=== PATIENT | female | born 1930 ===

== ENCOUNTER 2022-06-10 09:25 | Outpatient (CLI) | payer OTHER ==
[~2022-06-10 09:25] MED LIST: AMIODARONE HCL200 MG; CARVEDILOL3.125 MG; Cordarone PO; Coreg PO; FUROSEMIDE40 MG PO; INTEGRA F CAPS1 EACH PO; LEVOXYL137 MCG PO; LOSARTAN POTASS50 MG; PEPCID20 MG PO; SYNTHROID137 MCG; VASOTEC2.5 MG; XARELTO10 MG PO
== END 2022-06-10 09:32 | disposition home or self-care (01) ==
LOC: RAD 09:25
PROVIDERS: ATTEND Orthopaedic Surgery
DX: M25.562 Pain in left knee (principal); M79.652 Pain in left thigh

== ENCOUNTER 2022-07-26 08:14 | Outpatient (CLI) | payer OTHER | END 2022-07-26 08:26 | disposition home or self-care (01) | LOC: LAB 08:14 | PROVIDERS: ATTEND Orthopaedic Surgery | DX: E55.9 Vitamin D deficiency, unspecified (principal); M85.9 Disorder of bone density and structure, unspecified; E56.1 Deficiency of vitamin K; E21.3 Hyperparathyroidism, unspecified; E88.9 Metabolic disorder, unspecified; M81.8 Other osteoporosis without current pathological fracture ==

== ENCOUNTER 2022-08-26 11:06 | Outpatient (CLI) | payer OTHER | END 2022-08-26 11:15 | disposition home or self-care (01) | LOC: RAD 11:06 | PROVIDERS: ATTEND Orthopaedic Surgery | DX: S72.462D Displaced supracondylar fracture with intracondylar extension of lower end of left femur, subsequent encounter for closed fracture with routine healing (principal); M97.12XD Periprosthetic fracture around internal prosthetic left knee joint, subsequent encounter ==

== ENCOUNTER 2022-09-22 12:14 | Outpatient (CLI) | payer OTHER | END 2022-09-22 13:46 | disposition home or self-care (01) | LOC: RAD 12:14 | PROVIDERS: ATTEND Orthopaedic Surgery | DX: M97.12XD Periprosthetic fracture around internal prosthetic left knee joint, subsequent encounter (principal); S72.462D Displaced supracondylar fracture with intracondylar extension of lower end of left femur, subsequent encounter for closed fracture with routine healing ==